=== PATIENT | female | born 1965 | race Caucasian/White ===

== ENCOUNTER 2023-11-05 08:00 | Outpatient (REF) | payer OTHER, SELFPAY ==
--- NOTE | 2023-11-05 08:09 | EMG_ITS ---
Right median and ulnar motor and sensory studies were performed. Right radial and median and lateral antecubital brachial sensory studies were performed and paraspinal muscles were tested with a needle. IMPRESSION: [id number] right median neuropathy across carpal tunnel. MD LIZA Quispe/CHEIKH / [id number]
== END 2023-11-05 08:01 | disposition home or self-care (01) ==
LOC: HO.NEURO 08:00
PROVIDERS: Visit Provider Physician Assistant
DX: S63.601A Unspecified sprain of right thumb, initial encounter (principal); G56.11 Other lesions of median nerve, right upper limb; X58.XXXA Exposure to other specified factors, initial encounter; Y93.9 Activity, unspecified; Y92.9 Unspecified place or not applicable; Y99.0 Civilian activity done for income or pay
CPT/HCPCS: 95886; 95910